=== PATIENT | female | born 1960 | race Caucasian/White ===

== ENCOUNTER → 2018-04-11 23:59 | Outpatient (RCR) | payer MEDICAID, SELFPAY | LOC: CCN 07-17 11:42 | PROVIDERS: Family Provider Family Medicine Hospice and Palliative Medicine; PCP Family Medicine Hospice and Palliative Medicine; Visit Provider Family Medicine Hospice and Palliative Medicine | DX: Z00.00 Encounter for general adult medical examination without abnormal findings (principal) ==